=== PATIENT | female | born 1990 | race African-American/Black ===

== ENCOUNTER 2018-01-15 11:47 | Emergency (ER) | payer MEDICAID ==
[~2018-01-15] VITALS: Ht 149.9 cm; Wt 72.0 kg
[2018-01-15] MEDS ORDERED: IBUPROFEN 800MG TABLET PO ONE (13:30)
[2018-01-15 13:53] VITALS: BP 107/65
== END 2018-01-15 16:13 | disposition home or self-care (01) ==
LOC: ER 15:23
DX: M72.2 Plantar fascial fibromatosis (principal); F17.210 Nicotine dependence, cigarettes, uncomplicated
CPT/HCPCS: 99283

== ENCOUNTER 2019-02-04 11:43 | Emergency (ER) | payer MEDICAID ==
[~2019-02-04] VITALS: Ht 162.6 cm; Wt 59.0 kg
[2019-02-04 15:50] VITALS: BP 108/69
== END 2019-02-04 15:34 | disposition home or self-care (01) ==
LOC: ER 11:43
DX: M25.561 Pain in right knee (principal); F32.9 Major depressive disorder, single episode, unspecified; Z90.89 Acquired absence of other organs
CPT/HCPCS: 99283

== ENCOUNTER 2023-05-14 13:52 | Emergency (ER) | payer BC, MEDICAID ==
[~2023-05-14] VITALS: Ht 152.4 cm; Wt 73.6 kg
[2023-05-14 14:12] VITALS: O2SAT 98
[2023-05-14] MEDS ORDERED: FAMOTIDINE 20MG/2ML VIAL IV STA (16:08)
[2023-05-14] MEDS ORDERED: METOCLOPRAMIDE HCL 10MG/2ML VIAL IV STA (16:08)
[2023-05-14] MEDS ORDERED: SODIUM CHLORIDE 0.9% 1,000 ML IV ONE (16:15)
[2023-05-14 16:30] LABS: BASOPHILS % 0.3 % (0.0-2.0); EOSINOPHILS % 1.7 % (0.0-5.0); HEMATOCRIT. 34.4 % (36.0-48.0); LYMPHOCYTES % 15.1 % (20.0-50.0); MEAN CORPUSCULAR HEMOGLOBIN 30.6 pg (28.0-32.0); MEAN CORPUSCULAR VOLUME 87.9 fL (81.0-99.0); MEAN PLATELET VOLUME 8.2 fl (7.4-10.4); MONOCYTES % 3.5 % (2.0-8.0); NEUTROPHILS % 79.4 % (40.0-76.0); PLATELET 178 x1000/uL (130-400); RED BLOOD CELL COUNT 3.91 mill/uL (4.2-5.4); RED CELL DISTRIBUTION WIDTH 13.9 % (11.6-14.6)
[2023-05-14 16:37] LABS: CHLORIDE 107 mEq/L (98-107)
[2023-05-14] MEDS ORDERED: POTASSIUM CHLORIDE 20MEQ TABLET SR PO NR (17:15)
[2023-05-14] MEDS: METOCLOPRAMIDE HCL 10MG/2ML VIAL IV NR ×2 (18:46→18:47)
[2023-05-14] MEDS: FAMOTIDINE 20MG/2ML VIAL IV NR (18:47)
[2023-05-14 20:25] VITALS: BP 106/62; PULSE 77; RESP 18; TEMP 98.2
== END 2023-05-14 20:34 | disposition home or self-care (01) ==
LOC: ER 13:52
DX: O21.9 Vomiting of pregnancy, unspecified (principal); F32.9 Major depressive disorder, single episode, unspecified; Z3A.13 13 weeks gestation of pregnancy
CPT/HCPCS: 80053; 85025; 36415; 96361; 96374; 96375; 99284; J3490; J2765; J7030; Z7610 ×4